=== PATIENT | male | born 1975 | race Caucasian/White ===

== ENCOUNTER → 2017-12-03 | Outpatient (CLI) | payer OTHER | LOC: GMAJS 17:28 | PROVIDERS: ATTEND Physician Assistant | DX: R05 Cough (principal); J02.9 Acute pharyngitis, unspecified ==

== ENCOUNTER 2019-10-25 12:47 | Emergency (ER) | payer OTHER ==
[2019-10-25] MEDS ORDERED: fentaNYL CITRATE INJ 50 MCG/ML AMP IV ONE ×2 (12:56→15:56)
[2019-10-25] MEDS ORDERED: SODIUM CHLORIDE 0.9% 1000ML 1,000 ML IVS ONE (12:56)
[2019-10-25] MEDS ORDERED: ONDANSETRON INJ 4 MG/2 ML VIAL IV ONE (12:56)
--- NOTE | 2019-10-25 13:00 | ED.PDOC ---
History of Present Illness - General Stated Complaint: fall Time Seen by Provider: 10/25/19 12:55 Source: patient, RN notes reviewed, Vital Signs reviewed, EMS notes reviewed, EMS Exam Limitations: no limitations Additional Information: this is a 44-year-old gentleman who presents today via EMS secondary to a fall from a ladder. Patient was trimming trees at the time. He states that he lost his footing and fell onto his right wrist and his some limbs on the way down. He also says his wrist is the only thing that is hurting at present. There is noted deformity present. EMS did splint it. He declined any pain medications in route. Patient denying any LOC and also denies any neck pain. States that he did not hit his head. In his lower back at present. Distracting injury noted to the right wrist. - History of Present Illness Allergies/Adverse Reactions: Allergies NO KNOWN ALLERGY Allergy (Verified 10/25/19 14:04) Home Medications: Ambulatory Orders Acetaminophen W/ Codeine [Tylenol W/ CODEINE #3] 1 ea PO Q6HRS #20 10/25/19 Review of Systems - Review of Systems Constitutional: States: no symptoms reported EENTM: States: no symptoms reported. Denies: double vision Respiratory: States: no symptoms reported Cardiology: States: no symptoms reported Gastrointestinal/Abdominal: States: no symptoms reported Genitourinary: States: no symptoms reported Musculoskeletal: States: other - right wrist pain Skin: States: other - abrasions to the face Neurological: States: no symptoms reported All other Systems: Reviewed and Negative Physical Exam - Physical Exam General Appearance: Alert, No apparent distress, Other - on backboard Head Injury: other - abrasions noted to the left forehead and left zygoma Eye Exam: bilateral normal ENT Exam: hearing grossly normal, no evidence of ENT injury, no dental injury Peripheral Pulses: radial,right: 2+ Cardiovascular/Respiratory: regular rate, rhythm, no M/R/G, normal peripheral pulses, no JVD, normal breath sounds, no respiratory distress Gastrointestinal/Abdominal: normal bowel sounds, non tender, soft, no organomegaly, no pulsatile mass Back Exam: normal inspection, no CVA tenderness, no vertebral tenderness, other - minimal coccygeal pain Extremity Exam: other - right wrist with obvious deformity present. There is no evidence of open wound. Normal radial pulse and normal cap refill Neurologic: heeler II-XII nml as tested, no motor/sensory deficits, alert, normal mood/affect, oriented x 3 Skin Exam: normal color, warm/dry - Austin Coma Score Best Eye Response (Austin): (4) open spontaneously Best Verbal Response (Austin): (5) oriented Best Motor Response (Austin): (6) obeys commands Austin Total: 15 Progress - Progress Progress: 10/25/19 13:03 MDM: Dislocation, fracture, contusion, open fracture,, abrasions. 10/25/19 14:39 the patient has had closed reduction performed already. He's had CT evaluation of the lumbar and pelvis. Post reduction films with evidence of distal radial fracture noted. I was able to go over the x-ray findings with the patient's . They will follow up with Dr. Gatica for casting - Results/Orders Results/Orders: CLINICAL HISTORY: deformity TECHNIQUE: Frontal, lateral and oblique views of the right wrist. COMPARISON: No relevant prior studies available. FINDINGS: Bones/joints: There is a comminuted fracture of the distal radius with impaction and posterior and medial dislocation. Trabecular pattern and cortical surfaces of the scaphoid are intact. Carpal bone relationships maintained. Soft tissues: Soft tissue swelling noted with dislocation deformity. No radiopaque foreign body. IMPRESSION: Fracture dislocation of the distal radius. Electronically signed by: Ana Laura Garcia MD 10/25/2019 1:47 PM [employer] CLINICAL HISTORY: fall TECHNIQUE: Frontal and lateral views of the sacrum and coccyx. COMPARISON: No relevant prior studies available. FINDINGS: Sacrum/c occyx: There is cortical step-off distal sacrum seen on the lateral view only. Vertebrae: Visualized lumbar vertebrae are unremarkable. Soft tissues: Unremarkable. IMPRESSION: Possible subtle fracture of the distal sacrum. Consider CT to further evaluate. Electronically signed by: Ana Laura Garcia MD 10/25/2019 1:51 PM [employer] CLINICAL HISTORY: fall TECHNIQUE: Frontal and lateral views of the lumbar spine and sacrum. COMPARISON: No relevant prior studies available. FINDINGS: Vertebrae: There is very mild anterior height loss of L2 of uncertain age. Diffuse mild facet arthrosis noted. No subluxation. No acute fracture. Sacrum/coccyx: Unremarkable as visualized. No acute fracture. Disc spaces: Minimal disc space narrowing present L5-S1. Soft tissues: Unremarkable. IMPR ESSION: Mild age-indeterminate anterior compression deformity of L2 noted. See separately dictated report for the sacrum demonstrating a possible fracture not seen on the lumbar spine images. Electronically signed by: Ana Laura Garcia MD 10/25/2019 1:50 PM [facility] IMPRESSION: 1. Acute fractures of the distal radius and ulnar styloid. 2. Dislocation reduced with anatomic alignment of intra-articular fracture of the distal radius and mildly distracted fracture ulnar styloid. Electronically signed by: Ana Laura Garcia MD 10/25/2019 2:43 PM [employer] IMPRESSION: 1. Acute fracture of the upper portion of the L2 vertebral body, with minimal upper endplate depression but no bony retropulsion. 2. Suspected subtle incomplete fracture or cortical infraction of the anterior margin of the L1 vertebral body. 3. No evidence of acute osseous injury involving the pelvis, sacrum, or coccyx. 4. Mild diverticulosis in the distal colon and other minor findings as described above. Electronically signed by: Javi Carcamo MD 10/25/2019 3:12 PM [employer] Procedures - Joint Reduction wrist Conscious Sedation: Yes - versed 2.5 mg iv Reduction Attempts: 1 Pre-Procedure NV Exam: Yes - parasthesias of fingertips Post Joint Reduction Film: post reduction films ordered Progress: Good post reduction neuro exam Departure - Departure Clinical Impression: Dislocation of wrist, right, closed, Fall (on) (from) unspecified stairs and steps, initial encounter, Compression fracture of L2 lumbar vertebra Fracture of distal end of radius Qualifiers: Encounter type: initial encounter Fracture type: closed Fracture morphology: Colles' Laterality: left Qualified Code(s): S52.532A - Colles' fracture of left radius, initial encounter for closed fracture Time of Disposition: 15:31 Disposition: Discharge to Home or Self Care Condition: Good Referrals: LINDA CONWAY MD [Primary Care Provider] - 1-2 Weeks Renato Gatica MD [Active Staff] - 1-2 Weeks Prescriptions: Acetaminophen W/ Codeine [Tylenol W/ CODEINE #3] 1 ea PO Q6HRS #20 Home Medications: Ambulatory Orders Acetaminophen W/ Codeine [Tylenol W/ CODEINE #3] 1 ea PO Q6HRS #20 10/25/19 Additional Instructions: Keep splinted and use sling. Use ice intermittently. Follow up with Dr. Gatica for further evaluation and treatment. Return to ER if symptoms worsen.
[2019-10-25] MEDS ORDERED: LIDOCAINE 1% 10 ML VIAL INJ ONE (13:35)
[2019-10-25] MEDS ORDERED: MIDAZOLAM INJ 5 MG/5 ML VIAL ONE (13:36)
--- NOTE | 2019-10-25 13:49 | RAD ---
EXAM: XR Right Wrist Complete, 3 or More Views CLINICAL HISTORY: deformity TECHNIQUE: Frontal, lateral and oblique views of the right wrist. COMPARISON: No relevant prior studies available. FINDINGS: Bones/joints: There is a comminuted fracture of the distal radius with impaction and posterior and medial dislocation. Trabecular pattern and cortical surfaces of the scaphoid are intact. Carpal bone relationships maintained. Soft tissues: Soft tissue swelling noted with dislocation deformity. No radiopaque foreign body. IMPRESSION: Fracture dislocation of the distal radius. Electronically signed by: Ana Laura Garcia MD 10/25/2019 1:47 PM [facility]
--- NOTE | 2019-10-25 13:52 | RAD ---
EXAM: XR Lumbosacral Spine, 2 or 3 Views CLINICAL HISTORY: fall TECHNIQUE: Frontal and lateral views of the lumbar spine and sacrum. COMPARISON: No relevant prior studies available. FINDINGS: Vertebrae: There is very mild anterior height loss of L2 of uncertain age. Diffuse mild facet arthrosis noted. No subluxation. No acute fracture. Sacrum/coccyx: Unremarkable as visualized. No acute fracture. Disc spaces: Minimal disc space narrowing present L5-S1. Soft tissues: Unremarkable. IMPRESSION: Mild age-indeterminate anterior compression deformity of L2 noted. See separately dictated report for the sacrum demonstrating a possible fracture not seen on the lumbar spine images. Electronically signed by: Ana Laura Garcia MD 10/25/2019 1:50 PM [employer]
--- NOTE | 2019-10-25 13:52 | RAD ---
EXAM: XR Sacrum and Coccyx, 2 or more Views CLINICAL HISTORY: fall TECHNIQUE: Frontal and lateral views of the sacrum and coccyx. COMPARISON: No relevant prior studies available. FINDINGS: Sacrum/coccyx: There is cortical step-off distal sacrum seen on the lateral view only. Vertebrae: Visualized lumbar vertebrae are unremarkable. Soft tissues: Unremarkable. IMPRESSION: Possible subtle fracture of the distal sacrum. Consider CT to further evaluate. Electronically signed by: Ana Laura Garcia MD 10/25/2019 1:51 PM [facility]
--- NOTE | 2019-10-25 14:44 | RAD ---
EXAM: XR Right Wrist, 2 Views CLINICAL HISTORY: post reduction TECHNIQUE: Frontal and lateral views of the right wrist. Images obtained at 2:09 PM. COMPARISON: 1:12 PM the same day. FINDINGS: Bones/joints: Dislocation of the distal radius has been reduced. Anatomic alignment noted. There is a nondisplaced intra-articular fracture of the distal radius notably involving the base of the radial styloid. There is a minimally distracted fracture of the ulnar styloid. Trabecular pattern and cortical surfaces of the scaphoid are intact. Soft tissues: Soft tissue swelling noted at the wrist. No radiopaque foreign body. IMPRESSION: 1. Acute fractures of the distal radius and ulnar styloid. 2. Dislocation reduced with anatomic alignment of intra-articular fracture of the distal radius and mildly distracted fracture ulnar styloid. Electronically signed by: Ana Laura Garcia MD 10/25/2019 2:43 PM [facility]
--- NOTE | 2019-10-25 15:14 | CT ---
EXAM DESCRIPTION: CT Lumbar Spine (accession [id number]), CT Pelvis (accession [id number]) CLINICAL HISTORY: 44 years Male fracture, status post fall COMPARISON: None. Reference to plain films earlier today. TECHNIQUE: Noncontrast axial scans of the lumbar spine and the pelvis were obtained. Sagittal and coronal reformatted images were performed. This exam was performed according to our departmental dose-optimization program, which includes automated exposure control, adjustment of the mA and/or kV according to patient size and/or use of iterative reconstruction technique. FINDINGS: CT LUMBAR SPINE: There is minimal compression deformity and cortical irregularity of the upper portion of the body of L2, consistent with a recent fracture, extending to the upper endplate. No significant bony displacement or retropulsion is identified. On sagittal images, there also appears to be subtle cortical incongruity at the anterior vertebral margin of the body of L1, suspicious for an incomplete fracture or cortical infraction. There is no other evidence of acute fracture or dislocation or destructive bony lesion in the lumbar spine. Slight anterior vertebral wedging of T11 and T12 appear to be developmental or otherwise chronic, with note of slight regional anterior vertebral spurring. Vertebral body and disc space heights and alignment appear otherwise maintained. The bony spinal canal and neural foramina are patent. Attempted short first lumbar rib formation noted on the right. There is no evidence of significant focal disc herniation. CT PELVIS: No acute fracture or dislocation or destructive bony lesion is identified in the pelvis, sacrum, or coccyx. Specifically, the anterior cortical margin of the sacrum appears intact. Presumed tiny bone islands in the left ilium and the left femoral head. The hip joint spaces and SI joints are maintained and symmetrical. No abnormal soft tissue masses or fluid collections are seen within the pelvis. The prostate measures about 3.8 x 4.5 cm and contains some calcifications. The nonopacified bladder is unremarkable as visualized. A few scattered diverticula are noted in the visualized distal colon. There is a small fat-containing umbilical hernia. IMPRESSION: 1. Acute fracture of the upper portion of the L2 vertebral body, with minimal upper endplate depression but no bony retropulsion. 2. Suspected subtle incomplete fracture or cortical infraction of the anterior margin of the L1 vertebral body. 3. No evidence of acute osseous injury involving the pelvis, sacrum, or coccyx. 4. Mild diverticulosis in the distal colon and other minor findings as described above. Electronically signed by: Javi Carcamo MD 10/25/2019 3:12 PM [facility]
[2019-10-25 16:33] VITALS: BP 93/54; TEMP 97.6; O2SAT 98
== END 2019-10-25 16:09 | disposition home or self-care (01) ==
LOC: ER 12:47
DX: S52.532A Colles' fracture of left radius, initial encounter for closed fracture (principal); S52.612A Displaced fracture of left ulna styloid process, initial encounter for closed fracture; S52.515A Nondisplaced fracture of left radial styloid process, initial encounter for closed fracture; S32.020A Wedge compression fracture of second lumbar vertebra, initial encounter for closed fracture; S00.81XA Abrasion of other part of head, initial encounter; W11.XXXA Fall on and from ladder, initial encounter; Y93.H2 Activity, gardening and landscaping; Y92.9 Unspecified place or not applicable
CPT/HCPCS: 72100; 72131; 72192; 72220; 73100; 73110; J2250; J2405; J3010; J7030

== ENCOUNTER → 2019-10-27 | Outpatient (CLI) | payer OTHER ==
--- NOTE | 2019-10-27 12:39 | RAD ---
3 radiographs right wrist Indication: PAIN IN LEFT WRIST Comparison: October 25, 2019 Impression: The fracture of the central to radial margin of the distal radial epiphysis/radial styloid redemonstrated with stable alignment. Fracture of the base of the ulnar styloid redemonstrated as well. The fractures remain ununited. Associated soft tissue swelling present. No new fracture. Electronically signed by: Yogi Leung MD 10/27/2019 12:37 PM [facility]
== END ==
LOC: RAD 10:42
PROVIDERS: ATTEND Orthopaedic Surgery
DX: S52.532D Colles' fracture of left radius, subsequent encounter for closed fracture with routine healing (principal); S52.515D Nondisplaced fracture of left radial styloid process, subsequent encounter for closed fracture with routine healing; S52.612D Displaced fracture of left ulna styloid process, subsequent encounter for closed fracture with routine healing

== ENCOUNTER → 2019-10-31 | Outpatient (CLI) | payer OTHER ==
--- NOTE | 2019-10-31 09:32 | RAD ---
Right wrist 3 views INDICATION: Wrist pain fracture COMPARISON: October 27 IMPRESSION: Patient is now splinted/casted. Fairly visualized oblique fracture mid-distal radius in the base of the radial styloid. Dorsal fragmentation noted lateral view. Similar appearance to the prior film. Displaced ulnar styloid fracture. No evidence of carpal instability. Electronically signed by: Mehrdad Mcneil MD 10/31/2019 9:30 AM [facility]
== END ==
LOC: RAD 08:10
PROVIDERS: ATTEND Orthopaedic Surgery
DX: S52.532D Colles' fracture of left radius, subsequent encounter for closed fracture with routine healing (principal); S52.515D Nondisplaced fracture of left radial styloid process, subsequent encounter for closed fracture with routine healing; S52.612D Displaced fracture of left ulna styloid process, subsequent encounter for closed fracture with routine healing

== ENCOUNTER → 2019-11-06 | Outpatient (CLI) | payer OTHER ==
--- NOTE | 2019-11-06 11:23 | RAD ---
EXAM DESCRIPTION: Wrist,Right 3 Views CLINICAL HISTORY: 44 years Male, PAIN IN RIGHT WRIST COMPARISON: October 31, 2019 FINDINGS: Three views of the right wrist were obtained. Bony detail is extremely artifact from superimposed splint material. Again seen are non or minimally displaced radial and ulnar styloid fractures, unchanged from the previous exam. No new abnormality. IMPRESSION: Non or minimally displaced, nonunited radial and ulnar styloid fractures, both stable from October 31, 2019. Electronically signed by: Raffaele Kee MD 11/06/2019 10:35 AM [facility]
--- NOTE | 2019-11-06 11:38 | RAD ---
EXAM DESCRIPTION: Lumbar Spine 3 Views CLINICAL HISTORY: 44 years Male, LOW BACK PAIN COMPARISON: October 25, 2019 FINDINGS: Minimal compression of the L2 body, stable from the prior exam. No new vertebral body fracture or subluxation. The disc spaces are well-maintained. The spinous and transverse processes are intact. The sacrum and sacroiliac joints are unremarkable. IMPRESSION: L2 compression fracture unchanged from October 25, 2019 Electronically signed by: Raffaele Kee MD 11/06/2019 10:37 AM [facility]
== END ==
LOC: RAD 07:58
PROVIDERS: ATTEND Orthopaedic Surgery
DX: M48.56XD Collapsed vertebra, not elsewhere classified, lumbar region, subsequent encounter for fracture with routine healing (principal); S52.515 Nondisplaced fracture of left radial styloid process; S52.612K Displaced fracture of left ulna styloid process, subsequent encounter for closed fracture with nonunion

== ENCOUNTER → 2019-11-17 | Outpatient (CLI) | payer OTHER ==
--- NOTE | 2019-11-17 11:51 | RAD ---
5 radiographs of the lumbar spine Indication: CLOSED FRACTURE LUMBAR VERTEBRA Comparison: 2019 Impression: Age-indeterminate L1 and L2 superior endplate fractures redemonstrated as noted on the prior. Correlation with point tenderness versus MRI recommended. Moderate disc space height loss at L5-S1. Facet arthrosis L4-L5 and L5-S1. Electronically signed by: Yogi Leung MD 11/17/2019 11:49 AM [facility]
--- NOTE | 2019-11-17 11:51 | RAD ---
EXAM DESCRIPTION: Wrist,Right 3 Views CLINICAL HISTORY: 44 years Male, CLOSED FRACTURE DISLOCATION OF WRIST COMPARISON: November 06, 2019 Findings: Two views/radiographs Removal of the cast material. Similar ulnar styloid avulsion fracture. Redemonstrated minimally displaced intra-articular distal radius fracture. No change in alignment. No significant interval healing identified. No new fracture. Normal bone mineralization. No focal soft tissue swelling. IMPRESSION: Similar alignment of the previously described distal radius and ulnar styloid avulsion fractures. Electronically signed by: Eduar Lopez MD 11/17/2019 11:49 AM [facility]
== END ==
LOC: RAD 08:23
PROVIDERS: ATTEND Orthopaedic Surgery
DX: S52.571D Other intraarticular fracture of lower end of right radius, subsequent encounter for closed fracture with routine healing (principal); S52.611D Displaced fracture of right ulna styloid process, subsequent encounter for closed fracture with routine healing; S32.010D Wedge compression fracture of first lumbar vertebra, subsequent encounter for fracture with routine healing; S32.020D Wedge compression fracture of second lumbar vertebra, subsequent encounter for fracture with routine healing; M47.896 Other spondylosis, lumbar region; M47.897 Other spondylosis, lumbosacral region

== ENCOUNTER → 2019-11-24 | Outpatient (CLI) | payer OTHER ==
--- NOTE | 2019-11-24 10:18 | RAD ---
EXAM DESCRIPTION: Wrist,Right 3 Views CLINICAL HISTORY: 44 years Male, CLOSED FRACTURE DISLOCATION DISTAL RADICULNAR JOINT COMPARISON: November 17, 2019 FINDINGS: Again seen is a nondisplaced fracture through the base of the radial styloid with intra-articular extension, non or partially united. Slightly displaced ulnar styloid fracture, nonunited. No new fracture or malalignment. IMPRESSION: Radial and ulnar styloid fractures as detailed above, all not significantly changed from November 17, 2019. Electronically signed by: Raffaele Kee MD 11/24/2019 10:16 AM [facility]
== END ==
LOC: RAD 07:49
PROVIDERS: ATTEND Orthopaedic Surgery
DX: S52.571D Other intraarticular fracture of lower end of right radius, subsequent encounter for closed fracture with routine healing (principal); S52.611D Displaced fracture of right ulna styloid process, subsequent encounter for closed fracture with routine healing; S32.010D Wedge compression fracture of first lumbar vertebra, subsequent encounter for fracture with routine healing; S32.020D Wedge compression fracture of second lumbar vertebra, subsequent encounter for fracture with routine healing

== ENCOUNTER → 2019-12-12 | Outpatient (CLI) | payer OTHER ==
--- NOTE | 2019-12-12 12:57 | RAD ---
EXAM: Wrist,Right 3 Views CLINICAL HISTORY: CLOSED FRACTURE DISLOCATION DISTAL RADIOLNAR JOINT RIGHT. TECHNIQUE: AP, lateral and oblique images. COMPARISON STUDY: Right wrist x-rays November 17, 2019 and November 24, 2019 FINDINGS: The radial styloid fracture shows ongoing healing with what appears to be complete or near complete fusion at the fracture line. The ulnar styloid fracture fragment is unchanged. There are no new fractures and no dislocation. IMPRESSION: Fused radial styloid fracture. Unfused ulnar styloid fracture. Electronically signed by: Donnie Mendoza MD 12/12/2019 12:56 PM [facility]
== END ==
LOC: RAD 07:53
PROVIDERS: ATTEND Orthopaedic Surgery
DX: S52.571D Other intraarticular fracture of lower end of right radius, subsequent encounter for closed fracture with routine healing (principal); S52.611D Displaced fracture of right ulna styloid process, subsequent encounter for closed fracture with routine healing; S32.010D Wedge compression fracture of first lumbar vertebra, subsequent encounter for fracture with routine healing; S32.020D Wedge compression fracture of second lumbar vertebra, subsequent encounter for fracture with routine healing